=== PATIENT | male | born 1990 | race Caucasian/White ===

== ENCOUNTER → 2023-12-25 07:29 | Outpatient (REF) | payer OTHER, SELFPAY | LOC: RAD 07:29 | PROVIDERS: ATTENDING PHYSICIAN Student in an Organized Health Care Education/Training Program; FAMILY PHYSICIAN Internal Medicine | DX: M25.571 Pain in right ankle and joints of right foot (principal) | CPT/HCPCS: 73700 ==

== ENCOUNTER → 2023-12-31 06:32 | Day surgery (SDC) | payer OTHER, SELFPAY ==
[2023-12-31] VITALS (11 sets, daily range): BP systolic 96–105; BP diastolic 61–70; BMI 22.8
[2023-12-31] MEDS: TYLENOL 1000 MG PO (15:23)
[2023-12-31] MEDS: CELEBREX 200 MG PO (15:24)
[2023-12-31] MEDS: NORMOSOL-R 1000 IV (15:33)
[2023-12-31] MEDS: DILAUDID 0.25 MG IV ×2 (20:22→20:31)
== END ==
LOC: SDS 06:32
PROVIDERS: ATTENDING PHYSICIAN Student in an Organized Health Care Education/Training Program
DX: S92.121A Displaced fracture of body of right talus, initial encounter for closed fracture (principal); S93.491A Sprain of other ligament of right ankle, initial encounter; M25.571 Pain in right ankle and joints of right foot; X58.XXXA Exposure to other specified factors, initial encounter; Y93.23 Activity, snow (alpine) (downhill) skiing, snowboarding, sledding, tobogganing and snow tubing
CPT/HCPCS: 28445; 27695; 73600; 76000; C1713